=== PATIENT | female | born 1960 | race Caucasian/White ===

== ENCOUNTER → 2018-08-18 08:30 | Outpatient (CLI) | payer OTHER ==
[2014-11-28 21:53] VITALS: BMI 25.5
[~2018-08-18 08:30] MED LIST: HYDROCODONE-APA1 TAB PO; METOPROLOL TART50 MG PO; ZOFRAN ODT4 MG/UDTAB PO
== END | disposition home or self-care (01) ==
LOC: D.RAD 08:30
DX: K21.9 Gastro-esophageal reflux disease without esophagitis (principal)

== ENCOUNTER → 2018-09-27 10:00 | Outpatient (CLI) | payer OTHER ==
[2014-11-28 21:53] VITALS: BMI 25.5
== END | disposition home or self-care (01) ==
LOC: D.CT 10:00
DX: R11.0 Nausea (principal)

== ENCOUNTER → 2018-10-11 14:26 | Outpatient (CLI) | payer OTHER ==
[2014-11-28 21:53] VITALS: BMI 25.5
== END | disposition home or self-care (01) ==
LOC: D.HCCARDIO 14:26
PROVIDERS: ATTEND Internal Medicine Interventional Cardiology
DX: R07.9 Chest pain, unspecified (principal)

== ENCOUNTER → 2019-10-30 11:48 | Outpatient (CLI) | payer OTHER ==
[2014-11-28 21:53] VITALS: BMI 25.5
--- NOTE | ~2019-10-30 | EC ---
PATIENT:AURORA FRIEND DATE OF SERVICE: 10/30/19 SEX: F MEDICAL RECORD: [id number] DATE OF : [birth year] [facility] AGE [facility] PAT[facility]: 59 ADMISSION DATE: 10/30/19 REFERRING PHYSICIAN: INTERPRETING PHYSICIAN: ELLIOTT SYKES MD ECHOCARDIOGRAM REPORT ECHO CHARGES 4 ECHO COMPLETE Date: 10/30/19 CLINICAL DIAGNOSIS: CP/HTN/PALPITATIONS ECHOCARDIOGRAPHIC MEASUREMENTS (adult normal given) AC root (d.<3.7cm) 2.6 cm LV Septum d (<1.2 cm> 1.2 cm Valve Excursion 1.5 cm LV Septum (systole) 1.4 cm Left Atria (s.<4.0cm> 3.7 cm LVPW d(<1.2cm) 1.1 cm RV (d.<2.3cm) 2.7 cm LVPW (sytole) 1.6 cm LV diastole(<5.6CM) 4.4 cm MV E-F(>70mm/sec) cm LV systole 2.6 cm LVOT Diameter 1.6 cm MV exc.(>10mm) cm Est.ejection fraction (50-75%) % DOPPLER: LVIT cm/sec A 76.0 cm/sec E 96.0 cm/sec LA cm/sec RVSP 39.2 mmHg LVOT 117 cm/sec AOP1/2T m/s Asc. Ao 121 cm/sec RVOT 61.0 cm/sec RA cm/sec PA 96.0 cm/sec AV Gradient Peak 5.9 mmHg AV Mean 2.7 mmHg AV Area 1.7 cm MV Gradient Peak 4.9 mmHg MV Mean 2.0 mmHg MV Area cm COMMENTS: OP - HC Chestnut Tanner: 1 JALEESA TIM Loan Teller: 3 Dr. Hayes TAPE# PACS Pericardial Effusion N DATE OF SERVICE: Adequate 2D, color flow, spectral Doppler, and M-Mode. No LVH. LV internal dimensions are normal. Wall motion is normal. EF is greater than or equal to 55%. Aortic valve is tricuspid. No evidence of stenosis by Doppler interrogation. Left atrium is normal at 3.7 cm. Mitral valve shows no prolapse. Trace MR. Right-sided chambers are grossly normal. Trace TR. ECHOCARDIOGRAM REPORT [id number] AURORA FRIEND TRANSINT:[id number] Voice Confirmation ID: [id number] DOCUMENT ID: [id number] ELLIOTT SYKES MD CC: [id number] DICTATION DATE: 11/02/191533 ACCOUNTS PAYABLE TECHNICIAN: 11/02/192211 [facility] CLI 10/30/19 [place] [id number]
== END | disposition home or self-care (01) ==
LOC: D.HCCECHO 11:30
PROVIDERS: ATTEND Internal Medicine Interventional Cardiology
DX: R07.9 Chest pain, unspecified (principal)

== ENCOUNTER → 2020-03-04 09:07 | Outpatient (CLI) | payer OTHER ==
[2014-11-28 21:53] VITALS: BMI 25.5
== END | disposition home or self-care (01) ==
LOC: D.RAD 09:07
PROVIDERS: ATTEND Internal Medicine Gastroenterology
DX: K59.00 Constipation, unspecified (principal)

== ENCOUNTER 2020-04-22 17:25 | Emergency (ER) | payer OTHER ==
[~2020-04-22] VITALS: Ht 167.6 cm; Wt 71.4 kg
[2020-04-22 17:33] VITALS: Ht 167.6 cm; Wt 71.4 kg
[2020-04-22] MEDS ORDERED: OMEPRAZOLE20 M1 PO (17:35)
[2020-04-22] MEDS ORDERED: MECLIZINE HCL25 MG PO (17:35)
[2020-04-22 18:16] LABS: BASOPHILS 0.6 % (0-2); EOSINOPHILS 1.6 % (0-7); HEMATOCRIT 41.8 % (36.0-48.0); HEMOGLOBIN 13.8 g/dL (12-16); IMMATURE GRANULOCYTES 0.1 % (0-5); LYMPHOCYTES 29.1 % (15-50); MCH 29.7 pg (26.0-34.0); MCV 90.1 fL (80.0-100.0); MEAN PLATELET VOLUME 10.3 fL (7.4-10.4); MONOCYTES 7.6 % (2-11); PLATELET COUNT 328 10x3/uL (130-400); RBC 4.64 10x6/uL (4.00-5.40); RDW 13.2 % (11.5-14.5); WBC 8.3 10x3/uL (4.8-10.8)
[2020-04-22 18:27] LABS: CALC OSMOLALITY 284 mosm/kg (275-300); CALCIUM 9.3 mg/dL (8.5-10.1); CARBON DIOXIDE 27.2 mmol/L (21.0-32.0); CHLORIDE - SERUM 103 mmol/L (98-107); CREATININE - SERUM 0.8 mg/dL (0.6-1.3); GLUCOSE 112 mg/dL (74-106); POTASSIUM - SERUM 3.5 mmol/L (3.5-5.1); SODIUM 142 mmol/L (136-145); UREA NITROGEN 16 mg/dL (7-18); eGFR NON AFRICAN AMERICAN 78 mL/min (90-120)
[2020-04-22 18:29] LABS: APTT 28.7 SECONDS (22.8-39.4); INR 1.01 (0.85-1.17); PROTIME 13.2 SECONDS (11.6-15.0)
[2020-04-22 18:43] LABS: ALBUMIN 4.1 g/dL (3.4-5.0); ALKALINE PHOSPHATASE 47 U/L (30-120); ALT (SGPT) 27 U/L (10-68); BILIRUBIN - TOTAL 0.23 mg/dL (0.2-1.3); CKMB 0.8 U/L (0.0-3.6); CREATINE KINASE 43 UL (21-215); MAGNESIUM - SERUM 1.9 mg/dL (1.8-2.4); PROTEIN - SERUM 7.8 g/dL (6.4-8.2); TROPONIN-I < 0.017 ng/mL (0.000-0.060)
[2020-04-22 20:48] VITALS: BP 118/78
== END 2020-04-22 20:48 | disposition home or self-care (01) ==
LOC: D.ER 17:25
PROVIDERS: Family Medicine
DX: R07.89 Other chest pain (principal)

== ENCOUNTER → 2020-12-25 13:43 | Outpatient (CLI) | payer OTHER ==
[2020-04-22 17:33] VITALS: BMI 25.4
[~2020-12-25 13:43] MED LIST changes: +MECLIZINE HCL25 MG PO; +OMEPRAZOLE20 M1 PO
== END | disposition home or self-care (01) ==
LOC: D.US 12-23 15:00
PROVIDERS: ATTEND Emergency Medicine
DX: R60.0 Localized edema (principal)